=== PATIENT | female | born 1955 | race African-American/Black ===

== ENCOUNTER 2016-10-01 00:05 | Emergency (ER) | payer OTHER ==
[~2016-10-01] VITALS: Ht 165.1 cm; Wt 106.0 kg
[~2016-10-01 00:05] MED LIST: CEPH-443 PO; DOCU-159 PO; ERGO500014 PO; FLUO40CA PO; HYDR-906 PO; LOSA50TA6 PO; ONDA4TAB14 PO; ONDA4TAB8 PO; TRAZ50TA18 PO
[2016-10-01 00:09] VITALS: Ht 165.1 cm; Wt 106.0 kg
[2016-10-01] MEDS ORDERED: NPH10OT RIGHT EAR (03:19)
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
== END 2016-10-01 03:38 | disposition home or self-care (01) ==
LOC: FTE 00:05
DX: H92.01 Otalgia, right ear (principal); I10 Essential (primary) hypertension
CPT/HCPCS: 99283

== ENCOUNTER 2016-10-25 01:41 | Inpatient (IN) | payer OTHER ==
[~2016-10-25] VITALS: Ht 170.2 cm; Wt 81.6 kg
[~2016-10-25 01:41] MED LIST changes: +NPH10OT RIGHT EAR
[2016-10-25] MEDS ORDERED: ONDANSETRON 4 MG INJ IV STA (01:49)
[2016-10-25] MEDS ORDERED: HYDROmorphONE 1 MG/ML SYG IV STA (01:49)
[2016-10-25] MEDS ORDERED: SOD CHLORIDE 0.9% 500 ML IV STA (01:49)
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
[2016-10-25 02:38] LABS: BASOPHILS % 0.3 % (0.0-2.0); EOSINOPHILS # 0.1 10^3/ul (0.0-0.5); EOSINOPHILS % 0.5 % (0.0-7.0); HEMATOCRIT 38.5 % (37.0-47.0); HEMOGLOBIN 12.9 g/dl (12.0-16.0); LYMPHOCYTES # 3.3 10^3/ul (0.8-2.9); MEAN CORPUSCULAR HEMOGLOBIN 29.6 pg (29.0-33.0); MEAN CORPUSCULAR HGB CONC 33.5 g/dl (32.0-37.0); MEAN CORPUSCULAR VOLUME 88.3 fl (82.0-101.0); MEAN PLATELET VOLUME 10.5 fl (7.4-10.4); MONOCYTE # 1.1 10^3/ul (0.3-0.9); MONOCYTES % 8.3 % (0.0-11.0); NEUTROPHILS % 65.6 % (39.0-77.0); PLATELET COUNT 305 10^3/UL (140-415); RED BLOOD COUNT 4.36 10^6/ul (4.20-5.40); RED CELL DISTRIBUTION WIDTH 13.2 % (11.5-14.5); WHITE BLOOD COUNT 13.2 10^3/ul (4.8-10.8)
[2016-10-25 02:56] LABS: ALANINE AMINOTRANSFERASE 32 IU/L (13-69); ALBUMIN 3.9 g/dl (3.3-4.9); ALBUMIN/GLOBULIN RATIO 1.14; ALKALINE PHOSPHATASE 121 IU/L (42-121); ANION GAP 19 (8-16); ASPARTATE AMINO TRANSFERASE 22 IU/L (15-46); BILIRUBIN,INDIRECT 0.8 mg/dl (0-1.1); BILIRUBIN,TOTAL 0.8 mg/dl (0.2-1.3); BLOOD UREA NITROGEN 10 mg/dl (7-20); CALCIUM 9.3 mg/dl (8.4-10.2); CARBON DIOXIDE 24 mmol/L (21-31); CHLORIDE 106 mmol/L (97-110); CREATININE 1.05 mg/dl (0.44-1.00); GLUCOSE 103 mg/dl (70-220); POTASSIUM 3.8 mmol/L (3.5-5.1); SODIUM 145 mmol/L (135-144); TOTAL PROTEIN 7.3 g/dl (6.1-8.1)
[2016-10-25 03:09] LABS: TROPONIN-I < 0.012 ng/ml (0.00-0.12)
--- NOTE | 2016-10-25 03:38 | RADRPT ---
PROCEDURE: CT Abdomen and Pelvis without contrast. CLINICAL INDICATION: Abdominal pain TECHNIQUE: CT scan of the abdomen and pelvis without contrast was performed on a multidetector hig h-resolution CT scanner. The patient was scanned without intravenous contrast. Coronal and sagittal reformatted images were obtained from the axial source images. Images were reviewed on a high-resol [employer] PACS workstation. The total exam CTDI equals 21.68 mGy and the total exam DLP equals 1342.55 m Gy-cm. One or more the following dose reduction techniques were utilized: Automated exposure control, adjus tment of the mA and / or kV according to patient's size, or use of iterative reconstruction techniqu e. COMPARISON: 01/19/2016 FINDINGS: Right Port-A-Cath tip in upper right atrium. Minimal dependent atelectasis in posterior lung bases. No pneumoperitoneum is seen. Small foci of air in subcutaneous fat anterior abdominal and pelvic w all likely secondary to recent subcutaneous injections. No abnormality is seen in the liver. There is cholelithiasis. No definite abnormality of the stomach is seen. No abnormality is seen in the p ancreas, spleen or adrenals. No abnormality seen in the right kidney. There is nonspecific left pe rinephric soft tissue stranding increased compared to the previous study which could be secondary to pyelonephritis or recently passed ureteral stone. There is the suggestion of minimal left hydronep hrosis with minimally greater density in the left renal collecting system relative to the right and compared to previous study which could be secondary to blood. No ureteral stone is seen at this urvashi e bilaterally. No bladder stone is seen. Multiple phleboliths in the pelvis. Calcification in abdominal aorta and iliac arteries. No abdominal aortic aneurysm seen. The patient appears to be s tatus post hysterectomy. The patient again appears to be status post right colectomy with anastomos es with small bowel. No dilated small bowel loops are seen. No enlarged lymph nodes are seen in th e abdomen or pelvis. Small scattered likely bone islands again seen. Mild osteoarthrosis at hips. Degenerative changes at sacroiliac joints. Degenerative changes in thoracolumbar spine. Central s mary lou stenosis in lumbar spine. IMPRESSION: Cholelithiasis again seen with increase in number of gallstones since previous study. There is nonsp ecific left perinephric soft tissue stranding increased compared to the previous study which could b e secondary to pyelonephritis or recently passed ureteral stone. There is the suggestion of minimal left hydronephrosis with minimally greater density in the left renal collecting system relative to the right and compared to previous study which could be secondary to blood. Please see above. RPTAT: HJES .Omar Gama MD, Date Time Electronically viewed and signed by .Omar Gaam MD, on 10/25/2016 03:38 .S/
[2016-10-25] MEDS ORDERED: WARF2.5T PO (04:53)
[2016-10-25] MEDS ORDERED: PHEN-616 PO (04:53)
[2016-10-25] MEDS ORDERED: CIPR500T4 PO (04:53)
[2016-10-25] MEDS ORDERED: WARF10TA PO (04:53)
[2016-10-25 05:30] VITALS: TEMP 98.3
[2016-10-25] MEDS ORDERED: morphine 4 MG/ML VIAL IV STA (05:38)
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
[2016-10-25] MEDS ORDERED: NACL 0.9% 3 ML SYG IV SCH (07:00)
[2016-10-25] MEDS ORDERED: hydrALAzine 20 MG INJ IV PRN (07:00)
[2016-10-25] MEDS ORDERED: ONDANSETRON 4 MG INJ IV PRN (07:00)
[2016-10-25] MEDS: DEXTROSE 5%-0.45% NACL 1,000 ML IV SCH ×3 (08:18→18:51)
[2016-10-25 08:30] VITALS: BP 137/61; PULSE 71; RESP 18; Ht 170.2 cm; Wt 81.6 kg
[2016-10-25] MEDS: morphine 4 MG/ML VIAL IV PRN ×3 (08:56→20:51)
[2016-10-25] MEDS: FAMOTIDINE 20 MG INJ IV SCH ×2 (08:56→20:51)
--- NOTE | 2016-10-25 09:25 | HP ---
Date/Time of Note Date/Time of Note DATE: 10/25/16 TIME: 09:11 Assessment/Plan VTE Prophylaxis VTE Prophylaxis Intervention: SCD's Lines/Catheters IV Catheter Type (from Nrs): emmett cath Assessment/Plan Assessment/Plan 1. Left-sided abdominal pain -Given the fact that patient was recently diagnosed with UTI and the CAT scan finding, this could be secondary to pyelonephritis. Plan is for IV antibiotic. Check a urinalysis and urine culture. Continue pain management. 2. Cholelithiasis -I doubt her current pain is related to gallstone. In any case ER has already placed a surgical consult so will follow up on recommendation 3. History of colon cancer -Patient has completed chemo in December of last year. She is due for colonoscopy in a couple of days. She said that she was told if colonoscopy is negative, her Port-A-Cath will be removed. -Follow-up with oncology as outpatient 4. Hypertensive urgency: BP is better controlled -Continue antihypertensives with adjustment as needed HPI/ROS Admit Date/Time Admit Date/Time Oct 25, 2016 at 05:44 Hx of Present Illness This is a 61-year-old female with a history of hypertension, dyslipidemia, colon cancer status post completion of chemo in December of last year who presented to ER complaining of abdominal pain. Pain started last night. Pain is left-sided with no radiation. She reported an episode of nonbloody nonbilious emesis 1. She denied diarrhea. She said she was diagnosed with UTI 2 days ago and she has been taking Cipro. When she presented to the ER CT abdomen pelvis shows Cholelithiasis again seen with increase in number of gallstones since previous study. There is nonspecific left perinephric soft tissue stranding increased compared to the previous study which could be secondary to pyelonephritis or recently passed ureteral stone. There is the suggestion of minimal left hydronephrosis with minimally greater density in the left renal collecting system relative to the right and compared to previous study which could be secondary to blood. . PMH/Family/Social Past Medical History Medical History: high cholesterol, hypertension, other (Colon cancer) Social History Alcohol Use: none Smoking Status: Never smoker Drug Use: none Exam/Review of Systems Vital Signs Vitals Vital Signs Date Time Temp Pulse Resp B/P Pulse Ox O2 Delivery O2 Flow Rate FiO2 10/25/16 08:30 98.5 71 18 137/61 97 Room Air Exam Constitutional: alert, oriented, well developed Head: atraumatic, normocephalic Eyes: EOMI, PERRL Respiratory: clear to auscultation, normal air movement Cardiovascular: nl pulses, regular rate and rhythm Gastrointestinal: other (Mild left sided tenderness, with no guarding, no rigidity), soft Extremities: normal pulses Labs Result Diagram: 10/25/16 01410/25/16 0140 Medications Medications Current Medications Dextrose/Sodium Chloride (D5-1/2ns) 1,000 ml @ 100 mls/hr Q10H IV Last administered on 10/25/16 08:18; Admin Dose 100 MLS/HR; Start 10/25/16 at 06:35 Ondansetron HCl (Zofran Inj) 4 mg Q6H PRN IV NAUSEA AND/OR VOMITING; Start at 07:00 Morphine Sulfate (morphine) 4 mg Q4H PRN IV SEVERE PAIN LEVEL 7-10 Last administered on 10/25/16 08:56; Admin Dose 4 MG; Start 10/25/16 at 07:00 Famotidine (Pepcid Iv) 20 mg Q12 IV Last administered on 10/25/16 08:56; Admin Dose 20 MG; Start 10/25/16 at 09:00 Hydralazine HCl (Apresoline) 10 mg Q4H PRN IV SBP > 160; Start 10/25/16 at 07: 00 ELIEZER SALINAS MD Oct 25, 2016 09:23
[2016-10-25] MEDS ORDERED: CIPROFLOXACIN 400MG/D5W 200 ML IVPB SCH (09:30)
[2016-10-25] MEDS: PHENAZOPYRIDINE 200 MG TAB PO SCH ×2 (12:26→20:51)
[2016-10-25] MEDS: CEFTRIAXONE 1 GM/50 ML (PMX) 50 ML IVPB SCH (12:26)
[2016-10-25 13:08] VITALS: BP 116/64; RESP 18
[2016-10-25 13:09] LABS: ADD UMIC YES; UR ASCORBIC ACID NEGATIVE (NEGATIVE); UR BILIRUBIN (Dip) NEGATIVE (NEGATIVE); UR BLOOD (Dip) 2+ mg/dL (NEGATIVE); UR CLARITY CLOUDY (CLEAR); UR COLOR RED (YELLOW); UR GLUCOSE (Dip) 1+ mg/dL (NEGATIVE); UR KETONES (Dip) TRACE mg/dL (NEGATIVE); UR LEUKOCYTE ESTERASE (Dip) NEGATIVE Leu/ul (NEGATIVE); UR NITRITE (Dip) POSITIVE (NEGATIVE); UR RBC > 182 /HPF (0-5); UR SPECIFIC GRAVITY (Dip) 1.013 (1.003-1.030); UR TOTAL PROTEIN (Dip) 2+ mg/dl (NEGATIVE); UR UROBILINOGEN (Dip) 2+ mg/dL (NEGATIVE); UR WBC CLUMPS MANY /HPF (NONE SEEN)
[2016-10-25] MEDS: ENOXAPARIN 80 MG/0.8 ML SYG SC SCH ×2 (13:15→23:06)
--- NOTE | 2016-10-25 16:55 | CONS ---
Date/Time of Note Date/Time of Note DATE: 10/25/16 TIME: 16:49 Assessment/Plan Assessment/Plan Additional Assessment/Plan Asymptomatic cholelithiasis Recommend bowel regimen. No surgical indication at this time. May benefit from GI consultation. Also would recommend following up with surgery who performed her colectomy Consultation Date/Type/Reason Admit Date/Time Oct 25, 2016 at 05:44 Date of Consultation: Oct 25, 2016 Hx of Present Illness The patient is a 61-year-old female who presented to the ER last night with abdominal pain. She has says her pain is in the left lower quadrant. She feels that she has a bowel movement but does not feel like she completely empties. She is a long history of known gallstones and I was called for consultation. She denies right upper quadrant pain. She denies nausea she denies vomiting Past Medical History Medical History: high cholesterol, hypertension, other (Colon cancer) Past Surgical History Past Surgical Hx: other (Post colectomy) Social History Alcohol Use: none Smoking Status: Never smoker Drug Use: none Exam/Review of Systems Vital Signs Vitals Vital Signs Date Time Temp Pulse Resp B/P Pulse Ox O2 Delivery O2 Flow Rate FiO2 10/25/16 13:08 98.7 72 18 116/64 97 10/25/16 08:30 Room Air Exam Constitutional: alert, oriented, well developed Psych: no complaints Head: normocephalic ENMT: nl external ears & nose Neck: supple Respiratory: clear to auscultation Cardiovascular: regular rate and rhythm Gastrointestinal: other (Nondistended with some slight left lower quadrant tenderness), soft Musculoskeletal: nl extremities to inspection Results Result Diagram: 10/25/16 0140 10/25/16 0140 Results 24 hrs Laboratory Tests Test 10/25/16 01:40 10/25/16 12:30 White Blood Count 13.2 #H Red Blood Count 4.36 Hemoglobin 12.9 Hematocrit 38.5 Mean Corpuscular Volume 88.3 Mean Corpuscular Hemoglobin 29.6 Mean Corpuscular Hemoglobin Concent 33.5 Red Cell Distribution Width 13.2 Platelet Count 305 Mean Platelet Volume 10.5 #H Neutrophils % 65.6 Lymphocytes % 25.0 Monocytes % 8.3 Eosinophils % 0.5 Basophils % 0.3 Nucleated Red Blood Cells % 0.0 Neutrophils # (Manual) 8.6 H Lymphocytes # 3.3 H Monocytes # 1.1 H Eosinophils # 0.1 Basophils # 0.0 Nucleated Red Blood Cells # 0.0 Sodium Level 145 H Potassium Level 3.8 Chloride Level 106 Carbon Dioxide Level 24 Anion Gap 19 H Blood Urea Nitrogen 10 Creatinine 1.05 H Glucose Level 103 Calcium Level 9.3 Total Bilirubin 0.8 Direct Bilirubin 0.00 Indirect Bilirubin 0.8 Aspartate Amino Transf (AST/SGOT) 22 Alanine Aminotransferase (ALT/SGPT) 32 Alkaline Phosphatase 121 Troponin I < 0.012 Total Protein 7.3 Albumin 3.9 Globulin 3.40 H Albumin/Globulin Ratio 1.14 Lipase 206 Urine Color RED Urine Clarity CLOUDY A Urine pH 6.0 Urine Specific [place] 1.013 Urine Ketones TRACE A Urine Nitrite POSITIVE A Urine Bilirubin NEGATIVE Urine Urobilinogen 2+ H Urine Leukocyte Esterase NEGATIVE Urine Microscopic RBC > 182 H Urine Microscopic WBC > 182 H Urine Hemoglobin 2+ H Urine Glucose 1+ H Urine Total Protein 2+ H Medications Medications Current Medications Dextrose/Sodium Chloride (D5-1/2ns) 1,000 ml @ 100 mls/hr Q10H IV Last administered on 10/25/16 08:18; Admin Dose 100 MLS/HR; Start 10/25/16 at 06:35 Ondansetron HCl (Zofran Inj) 4 mg Q6H PRN IV NAUSEA AND/OR VOMITING; Start at 07:00 Morphine Sulfate (morphine) 4 mg Q4H PRN IV SEVERE PAIN LEVEL 7-10 Last administered on 10/25/16 08:56; Admin Dose 4 MG; Start 10/25/16 at 07:00 Famotidine (Pepcid Iv) 20 mg Q12 IV Last administered on 10/25/16 08:56; Admin Dose 20 MG; Start 10/25/16 at 09:00 Hydralazine HCl (Apresoline) 10 mg Q4H PRN IV SBP > 160; Start 10/25/16 at 07: 00 Losartan Potassium (Cozaar) 50 mg DAILY PO ; Start 10/26/16 at 09:00 Phenazopyridine HCl 200 mg 200 mg TID PO Last administered on 10/25/16 12:26; Admin Dose 200 MG; Start 10/25/16 at 13:00 Ceftriaxone Sodium (Rocephin) 50 ml @ 100 mls/hr Q24H IVPB Last administered on 10/25/16 12:26; Admin Dose 100 MLS/HR; Start 10/25/16 at 11:00 Enoxaparin Sodium (Lovenox) 80 mg Q12 SC Last administered on 10/25/16 13:15; Admin Dose 80 MG; Start 10/25/16 at 13:30 DONNA RODRIGUEZ MD Oct 25, 2016 16:55
[2016-10-25 19:40] VITALS: BP 102/59; RESP 20
[2016-10-26 01:51] VITALS: BP 111/58; RESP 20
[2016-10-26] MEDS: morphine 4 MG/ML VIAL IV PRN ×2 (04:38→19:53)
[2016-10-26] MEDS: DEXTROSE 5%-0.45% NACL 1,000 ML IV SCH ×2 (04:38→22:35)
[2016-10-26 06:54] LABS: BASOPHILS % 0.1 % (0.0-2.0); EOSINOPHILS # 0.1 10^3/ul (0.0-0.5); HEMATOCRIT 36.4 % (37.0-47.0); HEMOGLOBIN 11.6 g/dl (12.0-16.0); LYMPHOCYTES # 3.4 10^3/ul (0.8-2.9); LYMPHOCYTES % 37.7 % (15.0-51.0); MEAN CORPUSCULAR HEMOGLOBIN 28.9 pg (29.0-33.0); MEAN CORPUSCULAR HGB CONC 31.9 g/dl (32.0-37.0); MEAN CORPUSCULAR VOLUME 90.5 fl (82.0-101.0); MEAN PLATELET VOLUME 10.1 fl (7.4-10.4); MONOCYTE # 0.8 10^3/ul (0.3-0.9); MONOCYTES % 9.3 % (0.0-11.0); NEUTROPHILS % 51.7 % (39.0-77.0); PLATELET COUNT 267 10^3/UL (140-415); RED BLOOD COUNT 4.02 10^6/ul (4.20-5.40); RED CELL DISTRIBUTION WIDTH 13.5 % (11.5-14.5)
[2016-10-26 07:26] LABS: ALBUMIN 3.4 g/dl (3.3-4.9); ALBUMIN/GLOBULIN RATIO 1.09; BILIRUBIN,INDIRECT 0.5 mg/dl (0-1.1); BILIRUBIN,TOTAL 0.5 mg/dl (0.2-1.3); CALCIUM 8.4 mg/dl (8.4-10.2); CHOL/HDL RATIO 3.2 RATIO; CREATININE 0.97 mg/dl (0.44-1.00); PHOSPHORUS 3.8 mg/dl (2.5-4.9); POTASSIUM 4.1 mmol/L (3.5-5.1); TOTAL PROTEIN 6.5 g/dl (6.1-8.1)
[2016-10-26] MEDS: PHENAZOPYRIDINE 200 MG TAB PO SCH ×3 (08:34→20:30)
[2016-10-26] MEDS: FAMOTIDINE 20 MG INJ IV SCH (08:34)
[2016-10-26] MEDS: ENOXAPARIN 80 MG/0.8 ML SYG SC SCH ×2 (08:37→20:34)
[2016-10-26 09:02] VITALS: BP 140/73; RESP 20
[2016-10-26] MEDS: LOSARTAN 50 MG TAB PO SCH (10:05)
[2016-10-26] MEDS: CEFTRIAXONE 1 GM/50 ML (PMX) 50 ML IVPB SCH (10:07)
[2016-10-26 15:18] VITALS: BP 125/67; RESP 20
--- NOTE | 2016-10-26 15:58 | PN ---
Date/Time of Note Date/Time of Note DATE: 10/26/16 TIME: 15:53 Assessment/Plan VTE Prophylaxis VTE Prophylaxis Intervention: LMWH Lines/Catheters IV [facility] Type (from [facility] [place] cath Urinary Cath still in place: No Assessment/Plan Chief Complaint/Hosp Course 1. Left-sided abdominal pain secondary to pyelonephritis -UA is positive and urine culture shows diphtheroids -ID consult obtained 2. Cholelithiasis -Surgery consultation appreciated, no indication for surgery symptoms are not related to cholelithiasis 3. History of colon cancer s/p hemicolectomy and chemotherapy -Patient has completed chemo in December of last year -She was due for a colonoscopy as an outpatient tomorrow which she has canceled but would like a colonoscopy as an inpatient, have consulted GI -She said that she was told if colonoscopy is negative, her Port-A-Cath will be removed. -Follow-up with oncology as outpatient 4. Hypertensive urgency: BP is better controlled -Continue antihypertensives with adjustment as needed 5. Hx of DVT/PE -continue Lovenox PPx- Lovenox Problems: Subjective 24 Hr Interval Summary Gastrointestinal: pain (L side) Exam/Review of Systems Vital Signs Vitals Vital Signs Date Time Temp Pulse Resp B/P Pulse Ox O2 Delivery O2 Flow Rate FiO2 10/26/16 09:02 98.1 73 20 140/73 98 10/25/16 08:30 Room Air Intake and Output 10/25/16 10/25/16 10/26/16 15:00 23:00 07:00 Intake Total 50 ml 1770 ml 1100 ml Balance 50 ml 1770 ml 1100 ml Exam Constitutional: alert, oriented Respiratory: clear to auscultation Cardiovascular: regular rate and rhythm Gastrointestinal: soft, No distended Musculoskeletal: nl extremities to inspection Results Result Diagram: 10/26/16 0607 10/26/16 0608 Results 24 hrs Laboratory Tests Test 10/26/16 06:07 10/26/16 06:08 White Blood Count 9.0 # Red Blood Count 4.02 L Hemoglobin 11.6 L Hematocrit 36.4 L Mean Corpuscular Volume 90.5 Mean Corpuscular Hemoglobin 28.9 L Mean Corpuscular Hemoglobin Concent 31.9 L Red Cell Distribution Width 13.5 Platelet Count 267 Mean Platelet Volume 10.1 Neutrophils % 51.7 Lymphocytes % 37.7 Monocytes % 9.3 Eosinophils % 1.0 Basophils % 0.1 Nucleated Red Blood Cells % 0.0 Neutrophils # (Manual) 4.6 Lymphocytes # 3.4 H Monocytes # 0.8 Eosinophils # 0.1 Basophils # 0.0 Nucleated Red Blood Cells # 0.0 Hemoglobin A1c 5.2 Sodium Level 144 Potassium Level 4.1 Chloride Level 105 Carbon Dioxide Level 28 Anion Gap 15 Blood Urea Nitrogen 12 Creatinine 0.97 Glucose Level 90 Calcium Level 8.4 Phosphorus Level 3.8 Magnesium Level 2.0 Total Bilirubin 0.5 Direct Bilirubin 0.00 Indirect Bilirubin 0.5 Aspartate Amino Transf (AST/SGOT) 30 Alanine Aminotransferase (ALT/SGPT) 34 Alkaline Phosphatase 86 Total Protein 6.5 Albumin 3.4 Globulin 3.10 Albumin/Globulin Ratio 1.09 Triglycerides Level 67 Cholesterol Level 158 LDL Cholesterol, Calculated 97 HDL Cholesterol 48 Cholesterol/HDL Ratio 3.2 Medications Medications Current Medications Dextrose/Sodium Chloride (D5-1/2ns) 1,000 ml @ 100 mls/hr Q10H IV Last administered on 10/26/16 04:38; Admin Dose 100 MLS/HR; Start 10/25/16 at 06:35 Ondansetron HCl (Zofran Inj) 4 mg Q6H PRN IV NAUSEA AND/OR VOMITING; Start at 07:00 Morphine Sulfate (morphine) 4 mg Q4H PRN IV SEVERE PAIN LEVEL 7-10 Last administered on 10/26/16 04:38; Admin Dose 4 MG; Start 10/25/16 at 07:00 Famotidine (Pepcid Iv) 20 mg Q12 IV Last administered on 10/26/16 08:34; Admin Dose 20 MG; Start 10/25/16 at 09:00 Hydralazine HCl (Apresoline) 10 mg Q4H PRN IV SBP > 160; Start 10/25/16 at 07: 00 Losartan Potassium (Cozaar) 50 mg DAILY PO Last administered on 10/26/16 10:05 ; Admin Dose 50 MG; Start 10/26/16 at 09:00 Phenazopyridine HCl 200 mg 200 mg TID PO Last administered on 10/26/16 13:31; Admin Dose 200 MG; Start 10/25/16 at 13:00 Ceftriaxone Sodium (Rocephin) 50 ml @ 100 mls/hr Q24H IVPB Last administered on 10/26/16 10:07; Admin Dose 100 MLS/HR; Start 10/25/16 at 11:00 Enoxaparin Sodium (Lovenox) 80 mg Q12 SC Last administered on 10/26/16 08:37; Admin Dose 80 MG; Start 10/25/16 at 13:30 UBALDO HOBSON Oct 26, 2016 15:58
--- NOTE | 2016-10-26 16:50 | CONS ---
Date/Time of Note Date/Time of Note DATE: 10/26/16 TIME: 16:43 Assessment/Plan Assessment/Plan Additional Assessment/Plan Assessment: * History of colon cancer post segmental resection plus adjuvant chemotherapy/ due for surveillance colonoscopy * Cholelithiasis/no cholecystitis * Morbid obesity * Hypertension * Dyslipidemia Plan: * Colonoscopy tomorrow. Patient informed procedure including risks, benefits and alternatives. Agreeable to proceeding Consultation Date/Type/Reason Admit Date/Time Oct 25, 2016 at 05:44 Date of Consultation: Oct 26, 2016 Type of Consultation: GI Reason for Consultation History of colon cancer/due for surveillance Hx of Present Illness Pleasant 61-year-old -[place] female hospitalized with complaints of abdominal pain, nausea and vomiting. Workup has disclosed evidence of cholelithiasis but no acute cholecystitis. The patient's symptomatology has improved. The patient has a significant history of colon cancer approximately one year prior for which she underwent surgical resection and adjuvant chemotherapy. She is actually due for colonoscopy in a few days as an outpatient and the removal of the Port-A-Cath will depend on the findings of colonoscopy. She has requested to undergo colonoscopy while in the hospital and therefore GI has been consulted. There appears to be no contraindication to colonoscopy. The patient understands the procedure and its potential risks, benefits and alternatives. We will prepared and planned for tomorrow. Constitutional: improved, no complaints Eyes: no complaints ENT: no complaints Respiratory: no complaints Cardiovascular: no complaints Gastrointestinal: constipation, pain (Upper abdomen, now resolved), No blood, No nausea, No vomiting Genitourinary: no complaints Musculoskeletal: no complaints Skin: no complaints Neurologic: no complaints Endocrine: no complaints Lymphatic: no complaints Psychological: no complaints Immunologic: no complaints Past Medical History Medical History: high cholesterol, hypertension, other (Colon cancer) Past Surgical History Past Surgical Hx: other (Post colectomy) Family History Significant Family History: no pertinent family hx Social History Alcohol Use: none Smoking Status: Never smoker Drug Use: none Exam/Review of Systems Vital Signs Vitals Vital Signs Date Time Temp Pulse Resp B/P Pulse Ox O2 Delivery O2 Flow Rate FiO2 10/26/16 15:18 98.3 72 20 125/67 97 10/25/16 08:30 Room Air Intake and Output 10/25/16 10/25/16 10/26/16 15:00 23:00 07:00 Intake Total 50 ml 1770 ml 1100 ml Balance 50 ml 1770 ml 1100 ml Exam PHYSICAL EXAMINATION: GENERAL: Well developed, well nourished, significantly obese, alert & oriented x 3, in no acute distress SKIN: No lesions, no stigmata chronic liver disease, no evidence of bleeding diathesis LYMPHATIC: No palpable lymphadenopathy. HEAD: Normocephalic, atraumatic, no tenderness. EYES: Pupils equal reactive to light and accommodation, full extraocular movements, sclera clear, non-icteric, no discharge. EARS/NOSE AND THROAT: Ears normal, nose normal, oropharynx normal, oral membranes well hydrated without lesions. NECK: Supple, no masses, thyroid normal, JVP within normal limits, carotids normal without bruits. CHEST: Inspection within normal limits, breasts grossly normal. CARDIOVASCULAR: Heart: Regular rate and rhythm, no murmurs, gallops or rubs. Peripheral pulses present within normal limits, no cyanosis, clubbing or edemas. No pulsatile abdominal mass RESPIRATORY: Lungs clear to auscultation and percussion, no wheezing, no rubs GASTROINTESTINAL AND LIVER: Abdomen: Soft, mild diffuse tenderness, non- distended, no hernias, no masses, no organomegaly, no ascites, no guarding, no rebound tenderness, normoactive bowel sounds. Rectal: Deferred. GENITOURINARY: [Female genitalia within normal limits.] MUSCULO-SKELETAL: Gait and station within normal limits, range of motion adequate. Results Result Diagram: 10/26/16 0607 10/26/16 0608 Results 24 hrs Laboratory Tests Test 10/26/16 06:07 10/26/16 06:08 White Blood Count 9.0 # Red Blood Count 4.02 L Hemoglobin 11.6 L Hematocrit 36.4 L Mean Corpuscular Volume 90.5 Mean Corpuscular Hemoglobin 28.9 L Mean Corpuscular Hemoglobin Concent 31.9 L Red Cell Distribution Width 13.5 Platelet Count 267 Mean Platelet Volume 10.1 Neutrophils % 51.7 Lymphocytes % 37.7 Monocytes % 9.3 Eosinophils % 1.0 Basophils % 0.1 Nucleated Red Blood Cells % 0.0 Neutrophils # (Manual) 4.6 Lymphocytes # 3.4 H Monocytes # 0.8 Eosinophils # 0.1 Basophils # 0.0 Nucleated Red Blood Cells # 0.0 Hemoglobin A1c 5.2 Sodium Level 144 Potassium Level 4.1 Chloride Level 105 Carbon Dioxide Level 28 Anion Gap 15 Blood Urea Nitrogen 12 Creatinine 0.97 Glucose Level 90 Calcium Level 8.4 Phosphorus Level 3.8 Magnesium Level 2.0 Total Bilirubin 0.5 Direct Bilirubin 0.00 Indirect Bilirubin 0.5 Aspartate Amino Transf (AST/SGOT) 30 Alanine Aminotransferase (ALT/SGPT) 34 Alkaline Phosphatase 86 Total Protein 6.5 Albumin 3.4 Globulin 3.10 Albumin/Globulin Ratio 1.09 Triglycerides Level 67 Cholesterol Level 158 LDL Cholesterol, Calculated 97 HDL Cholesterol 48 Cholesterol/HDL Ratio 3.2 Medications Medications Current Medications Dextrose/Sodium Chloride (D5-1/2ns) 1,000 ml @ 100 mls/hr Q10H IV Last administered on 10/26/16 04:38; Admin Dose 100 MLS/HR; Start 10/25/16 at 06:35 Ondansetron HCl (Zofran Inj) 4 mg Q6H PRN IV NAUSEA AND/OR VOMITING; Start at 07:00 Morphine Sulfate (morphine) 4 mg Q4H PRN IV SEVERE PAIN LEVEL 7-10 Last administered on 10/26/16 04:38; Admin Dose 4 MG; Start 10/25/16 at 07:00 Famotidine (Pepcid Iv) 20 mg Q12 IV Last administered on 10/26/16 08:34; Admin Dose 20 MG; Start 10/25/16 at 09:00 Hydralazine HCl (Apresoline) 10 mg Q4H PRN IV SBP > 160; Start 10/25/16 at 07: 00 Losartan Potassium (Cozaar) 50 mg DAILY PO Last administered on 10/26/16 10:05 ; Admin Dose 50 MG; Start 10/26/16 at 09:00 Phenazopyridine HCl 200 mg 200 mg TID PO Last administered on 10/26/16 13:31; Admin Dose 200 MG; Start 10/25/16 at 13:00 Ceftriaxone Sodium (Rocephin) 50 ml @ 100 mls/hr Q24H IVPB Last administered on 10/26/16 10:07; Admin Dose 100 MLS/HR; Start 10/25/16 at 11:00 Enoxaparin Sodium (Lovenox) 80 mg Q12 SC Last administered on 10/26/16 08:37; Admin Dose 80 MG; Start 10/25/16 at 13:30 AUDI LEON MD Oct 26, 2016 16:50
--- NOTE | 2016-10-26 17:44 | CONS ---
Date/Time of Note Date/Time of Note DATE: 10/26/16 TIME: 17:43 Consultation Date/Type/Reason Admit Date/Time Oct 25, 2016 at 05:44 Date of Consultation: Oct 26, 2016 Type of Consultation: ID Reason for Consultation Antibiotic management Constitutional: improved, no complaints Eyes: no complaints ENT: no complaints Respiratory: no complaints Cardiovascular: no complaints Gastrointestinal: constipation, pain (Upper abdomen, now resolved), No blood, No nausea, No vomiting Genitourinary: no complaints Musculoskeletal: no complaints Skin: no complaints Neurologic: no complaints Endocrine: no complaints Lymphatic: no complaints Psychological: no complaints Immunologic: no complaints Past Medical History Medical History: high cholesterol, hypertension, other (Colon cancer) Past Surgical History Past Surgical Hx: other (Post colectomy) Social History Alcohol Use: none Smoking Status: Never smoker Drug Use: none Exam/Review of Systems Vital Signs Vitals Vital Signs Date Time Temp Pulse Resp B/P Pulse Ox O2 Delivery O2 Flow Rate FiO2 10/26/16 15:18 98.3 72 20 125/67 97 10/25/16 08:30 Room Air Intake and Output 10/25/16 10/25/16 10/26/16 15:00 23:00 07:00 Intake Total 50 ml 1770 ml 1100 ml Balance 50 ml 1770 ml 1100 ml Results Result Diagram: 10/26/16 0607 10/26/16 0608 Results 24 hrs Laboratory Tests Test 10/26/16 06:07 10/26/16 06:08 White Blood Count 9.0 # Red Blood Count 4.02 L Hemoglobin 11.6 L Hematocrit 36.4 L Mean Corpuscular Volume 90.5 Mean Corpuscular Hemoglobin 28.9 L Mean Corpuscular Hemoglobin Concent 31.9 L Red Cell Distribution Width 13.5 Platelet Count 267 Mean Platelet Volume 10.1 Neutrophils % 51.7 Lymphocytes % 37.7 Monocytes % 9.3 Eosinophils % 1.0 Basophils % 0.1 Nucleated Red Blood Cells % 0.0 Neutrophils # (Manual) 4.6 Lymphocytes # 3.4 H Monocytes # 0.8 Eosinophils # 0.1 Basophils # 0.0 Nucleated Red Blood Cells # 0.0 Hemoglobin A1c 5.2 Sodium Level 144 Potassium Level 4.1 Chloride Level 105 Carbon Dioxide Level 28 Anion Gap 15 Blood Urea Nitrogen 12 Creatinine 0.97 Glucose Level 90 Calcium Level 8.4 Phosphorus Level 3.8 Magnesium Level 2.0 Total Bilirubin 0.5 Direct Bilirubin 0.00 Indirect Bilirubin 0.5 Aspartate Amino Transf (AST/SGOT) 30 Alanine Aminotransferase (ALT/SGPT) 34 Alkaline Phosphatase 86 Total Protein 6.5 Albumin 3.4 Globulin 3.10 Albumin/Globulin Ratio 1.09 Triglycerides Level 67 Cholesterol Level 158 LDL Cholesterol, Calculated 97 HDL Cholesterol 48 Cholesterol/HDL Ratio 3.2 Medications Medications Current Medications Dextrose/Sodium Chloride (D5-1/2ns) 1,000 ml @ 100 mls/hr Q10H IV Last administered on 10/26/16 04:38; Admin Dose 100 MLS/HR; Start 10/25/16 at 06:35 Ondansetron HCl (Zofran Inj) 4 mg Q6H PRN IV NAUSEA AND/OR VOMITING; Start at 07:00 Morphine Sulfate (morphine) 4 mg Q4H PRN IV SEVERE PAIN LEVEL 7-10 Last administered on 10/26/16 04:38; Admin Dose 4 MG; Start 10/25/16 at 07:00 Hydralazine HCl (Apresoline) 10 mg Q4H PRN IV SBP > 160; Start 10/25/16 at 07: 00 Losartan Potassium (Cozaar) 50 mg DAILY PO Last administered on 10/26/16 10:05 ; Admin Dose 50 MG; Start 10/26/16 at 09:00 Phenazopyridine HCl 200 mg 200 mg TID PO Last administered on 10/26/16 13:31; Admin Dose 200 MG; Start 10/25/16 at 13:00 Ceftriaxone Sodium (Rocephin) 50 ml @ 100 mls/hr Q24H IVPB Last administered on 10/26/16 10:07; Admin Dose 100 MLS/HR; Start 10/25/16 at 11:00 Enoxaparin Sodium (Lovenox) 80 mg Q12 SC Last administered on 10/26/16 08:37; Admin Dose 80 MG; Start 10/25/16 at 13:30 Famotidine (Pepcid) 20 mg Q12 PO ; Start 10/26/16 at 21:00 ONIEL PETERSON MD Oct 26, 2016 17:44
[2016-10-26 20:00] VITALS: BP 149/70; RESP 18
[2016-10-26] MEDS: FAMOTIDINE 20 MG TAB PO SCH (20:30)
--- NOTE | 2016-10-26 22:26 | CONS ---
DATE OF ADMISSION: 10/25/2016 DATE OF CONSULTATION: 10/26/2016 Infectious disease consultation REASON FOR CONSULTATION: Antibiotic management. Sandi Morales is a 61-year-old female who comes in with left-sided abdominal pain. She is being seen for antibiotic management. PROBLEMS: 1. Hypertension. 2. Dyslipidemia. 3. Colon cancer status post completion of chemotherapy in December 2015. The patient presented to the emergency room complaining of abdominal pain which started last started on the at night, it was left-sided, without radiation. She had some nonbloody, nonbilious emesis without diarrhea. She was diagnosed with UTI 2 days prior and was taking ciprofloxacin. In the emergency room a CT scan of the abdomen showed cholelithiasis, seen with increase in the number of gallstones since her previous study. There is a nonspecific left perinephric soft tissue stranding, which is increased compared to the previous study, which could be secondary to pyelonephritis or recently passed ureteral stones. There is a suggestion of minimal left hydronephrosis with minimal greater density in the left renal collecting system relative to the right and compared to previous studies. This could be secondary to blood. On admission, her white count was 13.2, H and H of 12.9 and 38.5, platelet count 305,000. BUN and creatinine was 10/1.05. Glucose was 103. PAST MEDICAL HISTORY: Operations as outlined. FAMILY HISTORY: Noncontributory. SOCIAL HISTORY: She does not smoke, drink, or abuse drugs. ALLERGIES: NONE TO PENICILLIN, SULFA, OR FOODS. MEDICATION: Per chart. REVIEW OF SYSTEMS: As per HPI. PHYSICAL EXAMINATION: GENERAL: Patient is a well-developed, well-nourished, female who is alert, responsive, in no acute distress. VITAL SIGNS: Stable. She is afebrile. SKIN: Without generalized rash. HEENT: Within normal limits. NECK: Supple. Lymph nodes nonpalpable. CHEST: Decreased breath sounds at the bases. HEART: Without murmur or gallop. ABDOMEN: Soft, nontender. She has mild left-sided tenderness and some flank tenderness with no guarding. EXTREMITIES: Extremities without cyanosis, clubbing, or edema. RECTAL: Deferred. GENITAL: Deferred. NEUROLOGICAL: No focal neurological abnormality. LABORATORY: As noted, her white count was 13.2, her BUN and creatinine was 10/1.05. Urine culture showed diphtheroids, which is a contaminant. Her white count today is 9.0. Urine was negative for leukocyte esterase, positive for nitrites and greater than 182 white cells per high-powered field. The patient was started on ceftriaxone 1 g q.24. She had received some Cipro as well. She did not get any blood cultures drawn, but she is currently afebrile. She was also seen in consultation by Dr. Green who is going to do a colonoscopy tomorrow. He notes that she has a history of colon cancer status post segmental resection plus adjuvant chemotherapy. IMPRESSION AND PLAN: My feeling is that at this point she is stable and so I will continue her on the ceftriaxone dose. If she was ill I would escalate to either ertapenem or cefepime or Zosyn, if we can wait 24 hours and see what her cultures show. I will dictate my findings to the hospitalist as well as to Dr. Giraldo, surgery, and also to Dr. Green, GI. Dictated By: Rashel Calvert MD JD/harry/ /Document#: [id number]
[2016-10-27] MEDS: DEXTROSE 5%-0.45% NACL 1,000 ML IV SCH ×4 (01:31→22:39)
[2016-10-27] MEDS: morphine 4 MG/ML VIAL IV PRN ×4 (01:50→22:43)
[2016-10-27 02:00] VITALS: BP 148/70; RESP 18
[2016-10-27] MEDS: KETOROLAC 30 MG INJ IV PRN ×2 (02:41→08:44)
[2016-10-27 06:28] LABS: EOSINOPHILS # 0.1 10^3/ul (0.0-0.5); EOSINOPHILS % 1.3 % (0.0-7.0); HEMATOCRIT 34.8 % (37.0-47.0); HEMOGLOBIN 11.2 g/dl (12.0-16.0); LYMPHOCYTES # 2.7 10^3/ul (0.8-2.9); LYMPHOCYTES % 30.7 % (15.0-51.0); MEAN CORPUSCULAR HEMOGLOBIN 29.2 pg (29.0-33.0); MEAN CORPUSCULAR HGB CONC 32.2 g/dl (32.0-37.0); MEAN CORPUSCULAR VOLUME 90.6 fl (82.0-101.0); MEAN PLATELET VOLUME 10.2 fl (7.4-10.4); MONOCYTE # 0.9 10^3/ul (0.3-0.9); MONOCYTES % 9.6 % (0.0-11.0); PLATELET COUNT 255 10^3/UL (140-415); RED BLOOD COUNT 3.84 10^6/ul (4.20-5.40); RED CELL DISTRIBUTION WIDTH 13.7 % (11.5-14.5); WHITE BLOOD COUNT 8.9 10^3/ul (4.8-10.8)
[2016-10-27 06:48] LABS: INR 0.98
[2016-10-27 06:49] LABS: PARTIAL THROMBOPLASTIN TIME 37.7 Sec (25.0-35.0)
[2016-10-27 07:20] LABS: CALCIUM 8.3 mg/dl (8.4-10.2); CREATININE 0.96 mg/dl (0.44-1.00); POTASSIUM 3.8 mmol/L (3.5-5.1)
[2016-10-27 08:07] VITALS: BP 129/68; RESP 16
[2016-10-27] MEDS: FAMOTIDINE 20 MG TAB PO SCH ×2 (08:38→20:23)
[2016-10-27] MEDS: LOSARTAN 50 MG TAB PO SCH (08:38)
[2016-10-27] MEDS: PHENAZOPYRIDINE 200 MG TAB PO SCH ×3 (08:40→20:25)
[2016-10-27] MEDS: ENOXAPARIN 80 MG/0.8 ML SYG SC SCH ×2 (08:40→20:25)
[2016-10-27] MEDS: CEFTRIAXONE 1 GM/50 ML (PMX) 50 ML IVPB SCH (11:01)
[2016-10-27] MEDS ORDERED: BISACODYL (EC) 5 MG TAB PO ONE (11:30)
[2016-10-27 14:00] VITALS: BP 121/63; RESP 16
--- NOTE | 2016-10-27 15:28 | PN ---
DATE: 10/27/2016 SUBJECTIVE DATA: No acute changes overnight. The patient is alert, feels good, denies pain discomfort. No fevers. No dysuria. WBC today 8.9, no shift, no bands. BUN 12 and creatinine 0.96. Urine culture on 10/25/2016 grew Corynebacterium species resistant to Cipro and Bactrim. Indwelling right chest Port-A-Cath. ALLERGIES: PENICILLIN, SULFA AND TETRACYCLINE. OBJECTIVE DATA: PHYSICAL EXAMINATION: GENERAL: Well developed, elderly, -[place]yp[place] woman who is alert, in no distress. HEENT: Head atraumatic, normocephalic. Sclerae anicteric. Buccal mucosa pink. NECK: Supple. CHEST: Chest rise is symmetrical. Breath sounds clear. HEART: S1, S2. ABDOMEN: Soft, bowel sounds present. EXTREMITIES: Without cyanosis. ASSESSMENT: 1. Status post left-sided abdominal pain. 2. Urinary tract infection. As per urinalysis, patient remains on Rocephin. Urine culture grew Corynebacterium species. 3. History of colon cancer, status post-resection plus gallon chemotherapy. 4. Cholelithiasis without evidence of cholecystitis. 5. Obesity. 6. Hypertension. PLAN: The patient remains stable, overall improving. She is being seen by Gastroenterology who recommends repeat colonoscopy. Dictated By: Brenda Solorzano NP /harry/lynn /Document#: [id number]
[2016-10-27] MEDS ORDERED: PEG/ELECTROLYTES 4L BTL PO ONE (16:00)
--- NOTE | 2016-10-27 17:21 | PN ---
Date/Time of Note Date/Time of Note DATE: 10/27/16 TIME: 17:18 Assessment/Plan VTE Prophylaxis VTE Prophylaxis Intervention: LMWH Lines/Catheters Urinary Cath still in place: No Assessment/Plan Chief Complaint/Hosp Course 1. Left-sided abdominal pain secondary to pyelonephritis -UA is positive and urine culture shows Corynebacterium -ID consult appreciated 2. Cholelithiasis -Surgery consultation appreciated, no indication for surgery symptoms are not related to cholelithiasis 3. History of colon cancer s/p hemicolectomy and chemotherapy -Patient has completed chemo in December of last year -Plan is for colonoscopy tomorrow -She said that she was told if colonoscopy is negative, her Port-A-Cath will be removed. -Follow-up with oncology as outpatient 4. Hypertensive urgency: BP is better controlled -Continue antihypertensives with adjustment as needed 5. Hx of DVT/PE -continue Lovenox PPx- Lovenox Problems: Subjective 24 Hr Interval Summary Gastrointestinal: pain Exam/Review of Systems Vital Signs Vitals Vital Signs Date Time Temp Pulse Resp B/P Pulse Ox O2 Delivery O2 Flow Rate FiO2 10/27/16 14:00 98.3 72 16 121/63 97 10/25/16 08:30 Room Air Intake and Output 10/26/16 10/26/16 10/27/16 15:00 23:00 07:00 Intake Total 50 ml 1920 ml 1770 ml Balance 50 ml 1920 ml 1770 ml Exam Constitutional: alert, oriented Respiratory: clear to auscultation Cardiovascular: regular rate and rhythm Gastrointestinal: soft, tender, No distended Musculoskeletal: nl extremities to inspection Results Result Diagram: 10/27/16 0525 10/27/16 0525 Results 24 hrs Laboratory Tests Test 10/27/16 05:25 White Blood Count 8.9 Red Blood Count 3.84 L Hemoglobin 11.2 L Hematocrit 34.8 L Mean Corpuscular Volume 90.6 Mean Corpuscular Hemoglobin 29.2 Mean Corpuscular Hemoglobin Concent 32.2 Red Cell Distribution Width 13.7 Platelet Count 255 Mean Platelet Volume 10.2 Neutrophils % 58.0 Lymphocytes % 30.7 Monocytes % 9.6 Eosinophils % 1.3 Basophils % 0.0 Nucleated Red Blood Cells % 0.0 Neutrophils # (Manual) 5.2 Lymphocytes # 2.7 Monocytes # 0.9 Eosinophils # 0.1 Basophils # 0.0 Nucleated Red Blood Cells # 0.0 Prothrombin Time 13.0 Prothrombin Time Ratio 1.0 INR International Normalized Ratio 0.98 Activated Partial Thromboplast Time 37.7 H Sodium Level 141 Potassium Level 3.8 Chloride Level 103 Carbon Dioxide Level 29 Anion Gap 13 Blood Urea Nitrogen 12 Creatinine 0.96 Glucose Level 86 Calcium Level 8.3 L Medications Medications Current Medications Dextrose/Sodium Chloride (D5-1/2ns) 1,000 ml @ 100 mls/hr Q10H IV Last administered on 10/27/16 11:05; Admin Dose 100 MLS/HR; Start 10/25/16 at 06:35 Ondansetron HCl (Zofran Inj) 4 mg Q6H PRN IV NAUSEA AND/OR VOMITING; Start at 07:00 Morphine Sulfate (morphine) 4 mg Q4H PRN IV SEVERE PAIN LEVEL 7-10 Last administered on 10/27/16 11:51; Admin Dose 4 MG; Start 10/25/16 at 07:00 Hydralazine HCl (Apresoline) 10 mg Q4H PRN IV SBP > 160; Start 10/25/16 at 07: 00 Losartan Potassium (Cozaar) 50 mg DAILY PO Last administered on 10/27/16 08:38 ; Admin Dose 50 MG; Start 10/26/16 at 09:00 Phenazopyridine HCl 200 mg 200 mg TID PO Last administered on 10/26/16 20:30; Admin Dose 200 MG; Start 10/25/16 at 13:00 Ceftriaxone Sodium (Rocephin) 50 ml @ 100 mls/hr Q24H IVPB Last administered on 10/27/16 11:01; Admin Dose 100 MLS/HR; Start 10/25/16 at 11:00 Enoxaparin Sodium (Lovenox) 80 mg Q12 SC Last administered on 10/26/16 20:34; Admin Dose 80 MG; Start 10/25/16 at 13:30 Famotidine (Pepcid) 20 mg Q12 PO Last administered on 10/26/16 20:30; Admin Dose 20 MG; Start 10/26/16 at 21:00 Ketorolac Tromethamine (Toradol) 30 mg Q6H PRN IV PAIN Last administered on 08:44; Admin Dose 30 MG; Start 10/27/16 at 02:30; Stop 10/30/16 at 02:29 UBALDO HOBSON Oct 27, 2016 17:21
[2016-10-27] MEDS ORDERED: MAGNESIUM CITRATE 300 ML BTL PO ONE (17:30)
[2016-10-27] MEDS ORDERED: POLYETHYLENE GLYCOL 3350 119 GM POWDER PO ONE (18:30)
--- NOTE | 2016-10-27 18:50 | PN ---
Date/Time of Note Date/Time of Note DATE: 10/27/16 TIME: 18:47 Assessment/Plan VTE Prophylaxis VTE Prophylaxis Intervention: SCD's Lines/Catheters Urinary Cath still in place: No Assessment/Plan Assessment/Plan Summary of Assessment and Plan Assessment: * History of colon cancer post segmental resection plus adjuvant chemotherapy/ due for surveillance colonoscopy * Cholelithiasis/no cholecystitis * Morbid obesity * Hypertension * Dyslipidemia Plan: * Colonoscopy tomorrow. Patient informed procedure including risks, benefits and alternatives. Agreeable to proceeding Subjective: Course reviewed with nursing staff Patient interviewed and examined All labs, imaging and other results reviewed The patient had previously refused colonoscopy prep taking preparation without difficulties Exam: General: well developed, well nourished, obese, alert and oriented x3 , in no acute distress Skin: No lesions, no stigmata chronic liver disease, no evidence of bleeding diathesis Lymphatic: No palpable lymphadenopathy HEENT: No lesions Cardiovascular: Heart: Regular rate and rhythm, no murmurs, gallops or rubs. Peripheral pulses present within normal limits, no cyanosis, clubbing or edemas. No pulsatile abdominal mass Respiratory: Lungs clear to auscultation and percussion, no wheezing, no rubs Gastrointestinal and Liver: Abdomen: Soft, non tender, non-distended, no hernias , no masses, no organomegaly, no ascites, no guarding, no rebound tenderness, normoactive bowel sounds. Extremities: No cyanosis, clubbing, or edema. Diagnostic Studies: Available data and images were reviewed personally. See reports. Significant results and findings are addressed here or in the assessment and plan. Exam/Review of Systems Vital Signs Vitals Vital Signs Date Time Temp Pulse Resp B/P Pulse Ox O2 Delivery O2 Flow Rate FiO2 10/27/16 14:00 98.3 72 16 121/63 97 10/25/16 08:30 Room Air Intake and Output 10/26/16 10/26/16 10/27/16 15:00 23:00 07:00 Intake Total 50 ml 1920 ml 1770 ml Balance 50 ml 1920 ml 1770 ml Results Result Diagram: 10/27/16 0525 10/27/16 0525 Results 24 hrs Laboratory Tests Test 10/27/16 05:25 White Blood Count 8.9 Red Blood Count 3.84 L Hemoglobin 11.2 L Hematocrit 34.8 L Mean Corpuscular Volume 90.6 Mean Corpuscular Hemoglobin 29.2 Mean Corpuscular Hemoglobin Concent 32.2 Red Cell Distribution Width 13.7 Platelet Count 255 Mean Platelet Volume 10.2 Neutrophils % 58.0 Lymphocytes % 30.7 Monocytes % 9.6 Eosinophils % 1.3 Basophils % 0.0 Nucleated Red Blood Cells % 0.0 Neutrophils # (Manual) 5.2 Lymphocytes # 2.7 Monocytes # 0.9 Eosinophils # 0.1 Basophils # 0.0 Nucleated Red Blood Cells # 0.0 Prothrombin Time 13.0 Prothrombin Time Ratio 1.0 INR International Normalized Ratio 0.98 Activated Partial Thromboplast Time 37.7 H Sodium Level 141 Potassium Level 3.8 Chloride Level 103 Carbon Dioxide Level 29 Anion Gap 13 Blood Urea Nitrogen 12 Creatinine 0.96 Glucose Level 86 Calcium Level 8.3 L Medications Medications Current Medications Dextrose/Sodium Chloride (D5-1/2ns) 1,000 ml @ 100 mls/hr Q10H IV Last administered on 10/27/16 11:05; Admin Dose 100 MLS/HR; Start 10/25/16 at 06:35 Ondansetron HCl (Zofran Inj) 4 mg Q6H PRN IV NAUSEA AND/OR VOMITING; Start at 07:00 Morphine Sulfate (morphine) 4 mg Q4H PRN IV SEVERE PAIN LEVEL 7-10 Last administered on 10/27/16 11:51; Admin Dose 4 MG; Start 10/25/16 at 07:00 Hydralazine HCl (Apresoline) 10 mg Q4H PRN IV SBP > 160; Start 10/25/16 at 07: 00 Losartan Potassium (Cozaar) 50 mg DAILY PO Last administered on 10/27/16 08:38 ; Admin Dose 50 MG; Start 10/26/16 at 09:00 Phenazopyridine HCl 200 mg 200 mg TID PO Last administered on 10/26/16 20:30; Admin Dose 200 MG; Start 10/25/16 at 13:00 Ceftriaxone Sodium (Rocephin) 50 ml @ 100 mls/hr Q24H IVPB Last administered on 10/27/16 11:01; Admin Dose 100 MLS/HR; Start 10/25/16 at 11:00 Enoxaparin Sodium (Lovenox) 80 mg Q12 SC Last administered on 10/26/16 20:34; Admin Dose 80 MG; Start 10/25/16 at 13:30 Famotidine (Pepcid) 20 mg Q12 PO Last administered on 10/26/16 20:30; Admin Dose 20 MG; Start 10/26/16 at 21:00 Ketorolac Tromethamine (Toradol) 30 mg Q6H PRN IV PAIN Last administered on 08:44; Admin Dose 30 MG; Start 10/27/16 at 02:30; Stop 10/30/16 at 02:29 AUDI LEON MD Oct 27, 2016 18:50
[2016-10-27 19:47] VITALS: BP 146/84; RESP 20
[2016-10-28] VITALS (11 sets, daily range): BP systolic 16–142; BP diastolic 54–74; PULSE 60–66; RESP 16–24
[2016-10-28] MEDS: DEXTROSE 5%-0.45% NACL 1,000 ML IV SCH ×3 (04:38→14:35)
[2016-10-28] MEDS: morphine 4 MG/ML VIAL IV PRN (05:05)
[2016-10-28] MEDS ORDERED: POLYETHYLENE GLYCOL 3350 119 GM POWDER PO ONE (06:00)
[2016-10-28 06:21] LABS: BASOPHILS % 0.2 % (0.0-2.0); EOSINOPHILS # 0.2 10^3/ul (0.0-0.5); EOSINOPHILS % 1.8 % (0.0-7.0); HEMATOCRIT 32.9 % (37.0-47.0); HEMOGLOBIN 10.7 g/dl (12.0-16.0); LYMPHOCYTES # 2.3 10^3/ul (0.8-2.9); LYMPHOCYTES % 26.2 % (15.0-51.0); MEAN CORPUSCULAR HEMOGLOBIN 29.3 pg (29.0-33.0); MEAN CORPUSCULAR HGB CONC 32.5 g/dl (32.0-37.0); MEAN CORPUSCULAR VOLUME 90.1 fl (82.0-101.0); MONOCYTE # 0.9 10^3/ul (0.3-0.9); MONOCYTES % 10.5 % (0.0-11.0); NEUTROPHILS % 61.2 % (39.0-77.0); PLATELET COUNT 247 10^3/UL (140-415); RED BLOOD COUNT 3.65 10^6/ul (4.20-5.40); RED CELL DISTRIBUTION WIDTH 13.4 % (11.5-14.5); WHITE BLOOD COUNT 8.7 10^3/ul (4.8-10.8)
[2016-10-28 06:50] LABS: CALCIUM 8.3 mg/dl (8.4-10.2); CREATININE 1.28 mg/dl (0.44-1.00); POTASSIUM 3.8 mmol/L (3.5-5.1)
[2016-10-28] MEDS ORDERED: PROPOFOL 200 MG INJ ONE (07:00)
[2016-10-28] MEDS ORDERED: MAGNESIUM CITRATE 300 ML BTL PO ONE (08:00)
[2016-10-28] MEDS ORDERED: BISACODYL (EC) 5 MG TAB PO ONE (08:00)
[2016-10-28] MEDS: LOSARTAN 50 MG TAB PO SCH (09:00)
[2016-10-28] MEDS: PHENAZOPYRIDINE 200 MG TAB PO SCH ×3 (09:00→20:13)
[2016-10-28] MEDS: ENOXAPARIN 80 MG/0.8 ML SYG SC SCH ×2 (09:00→20:14)
[2016-10-28] MEDS: FAMOTIDINE 20 MG TAB PO SCH ×2 (09:00→20:14)
[2016-10-28] MEDS: CEFTRIAXONE 1 GM/50 ML (PMX) 50 ML IVPB SCH (11:55)
[2016-10-28] MEDS: KETOROLAC 30 MG INJ IV PRN (12:07)
[2016-10-28 12:30] LABS: ADD UMIC YES; UR ASCORBIC ACID NEGATIVE (NEGATIVE); UR BILIRUBIN (Dip) NEGATIVE (NEGATIVE); UR BLOOD (Dip) 2+ mg/dL (NEGATIVE); UR CLARITY SLIGHTLY CLOUDY (CLEAR); UR COLOR RED (YELLOW); UR GLUCOSE (Dip) NEGATIVE (NEGATIVE); UR KETONES (Dip) NEGATIVE (NEGATIVE); UR LEUKOCYTE ESTERASE (Dip) NEGATIVE Leu/ul (NEGATIVE); UR MUCUS FEW /HPF (NONE SEEN); UR NITRITE (Dip) NEGATIVE (NEGATIVE); UR RBC > 182 /HPF (0-5); UR SPECIFIC GRAVITY (Dip) 1.006 (1.003-1.030); UR TOTAL PROTEIN (Dip) 2+ mg/dl (NEGATIVE); UR UROBILINOGEN (Dip) NEGATIVE (NEGATIVE); UR WBC CLUMPS MANY /HPF (NONE SEEN)
--- NOTE | 2016-10-28 13:42 | PN ---
DATE: 10/28/2016 SUBJECTIVE DATA: No acute changes. The patient is alert, feels good, looks comfortable. She is afebrile. LABORATORY AND DIAGNOSTIC DATA: WBC 8.7, platelets 247, BUN 9, and creatinine 1.28. ANTIMICROBIALS: The patient remains on ceftriaxone, day number 4. Urine culture on admission grew Corynebacterium species. INDWELLINGS: Right chest Port-A-Cath. PHYSICAL EXAMINATION: GENERAL: This is obese, well developed, elderly woman, who is alert, in no distress. HEENT: Head atraumatic, normocephalic. Sclerae anicteric. Buccal mucosa pink. NECK: Supple. CHEST: Rise symmetrical. Breath sounds clear. HEART: S1, S2. ABDOMEN: Soft, bowel sounds present. EXTREMITIES: No cyanosis. ASSESSMENT: 1. Urinary tract infection (UTI) possible pyelonephritis with resolved left abdominal pain, urinalysis positive. Urine culture grew Corynebacterium species. Repeat urine culture pending. 2. History of colon cancer status post chemotherapy with resection. 3. Cholelithiasis. 4. Hypertension. 5. Obesity. PLAN: 1. The patient remains stable. 2. She is being followed by Gastroenterology. 3. Pending colonoscopy pending repeat urine culture. 4. Continue present care and current antibiotics. Dictated By: Brenda Solorzano NP /harry/fahad /Document#: [id number]
--- NOTE | 2016-10-28 14:10 | PN ---
Date/Time of Note Date/Time of Note DATE: 10/28/16 TIME: 14:08 Assessment/Plan VTE Prophylaxis VTE Prophylaxis Intervention: LMWH Lines/Catheters IV Catheter Type (from [facility]): PORT A CATH Urinary Cath still in place: No Assessment/Plan Chief Complaint/Hosp Course 1. Left-sided abdominal pain secondary to pyelonephritis -UA is positive and urine culture shows Corynebacterium -ID consult appreciated, continue Rocephin 2. Cholelithiasis -Surgery consultation appreciated, no indication for surgery symptoms are not related to cholelithiasis 3. History of colon cancer s/p hemicolectomy and chemotherapy -Patient has completed chemo in December of last year -Plan is for colonoscopy today -She said that she was told if colonoscopy is negative, her Port-A-Cath will be removed. -Follow-up with oncology as outpatient 4. Hypertensive urgency: BP is better controlled -Continue antihypertensives with adjustment as needed 5. Hx of DVT/PE -continue Lovenox PPx- Lovenox Problems: Subjective 24 Hr Interval Summary Constitutional: no complaints Exam/Review of Systems Vital Signs Vitals Vital Signs Date Time Temp Pulse Resp B/P Pulse Ox O2 Delivery O2 Flow Rate FiO2 10/28/16 07:42 98.9 72 16 130/66 95 10/25/16 08:30 Room Air Intake and Output 10/27/16 10/27/16 10/28/16 14:59 22:59 06:59 Intake Total 1400 ml 2170 ml 575 ml Balance 1400 ml 2170 ml 575 ml Exam Constitutional: alert, oriented Respiratory: clear to auscultation Cardiovascular: regular rate and rhythm Gastrointestinal: soft, No distended Musculoskeletal: nl extremities to inspection Results Result Diagram: 10/28/16 0545 10/28/16 0545 Results 24 hrs Laboratory Tests Test 10/28/16 05:45 10/28/16 10:50 White Blood Count 8.7 Red Blood Count 3.65 L Hemoglobin 10.7 L Hematocrit 32.9 L Mean Corpuscular Volume 90.1 Mean Corpuscular Hemoglobin 29.3 Mean Corpuscular Hemoglobin Concent 32.5 Red Cell Distribution Width 13.4 Platelet Count 247 Mean Platelet Volume 10.0 Neutrophils % 61.2 Lymphocytes % 26.2 Monocytes % 10.5 Eosinophils % 1.8 Basophils % 0.2 Nucleated Red Blood Cells % 0.0 Neutrophils # (Manual) 5.3 Lymphocytes # 2.3 Monocytes # 0.9 Eosinophils # 0.2 Basophils # 0.0 Nucleated Red Blood Cells # 0.0 Sodium Level 140 Potassium Level 3.8 Chloride Level 106 Carbon Dioxide Level 29 Anion Gap 9 Blood Urea Nitrogen 9 Creatinine 1.28 H Glucose Level 90 Calcium Level 8.3 L Urine Color RED Urine Clarity SLIGHTLY CLOUDY A Urine pH 7.0 Urine Specific [place] 1.006 Urine Ketones NEGATIVE Urine Nitrite NEGATIVE Urine Bilirubin NEGATIVE Urine Urobilinogen NEGATIVE Urine Leukocyte Esterase NEGATIVE Urine Microscopic RBC > 182 H Urine Microscopic WBC > 182 H Urine Mucus FEW A Urine Hemoglobin 2+ H Urine Glucose NEGATIVE Urine Total Protein 2+ H Medications Medications Current Medications Dextrose/Sodium Chloride (D5-1/2ns) 1,000 ml @ 100 mls/hr Q10H IV Last administered on 10/28/16 10:21; Admin Dose 100 MLS/HR; Start 10/25/16 at 06:35 Ondansetron HCl (Zofran Inj) 4 mg Q6H PRN IV NAUSEA AND/OR VOMITING Last administered on 10/27/16 18:54; Admin Dose 4 MG; Start 10/25/16 at 07:00 Morphine Sulfate (morphine) 4 mg Q4H PRN IV SEVERE PAIN LEVEL 7-10 Last administered on 10/28/16 05:05; Admin Dose 4 MG; Start 10/25/16 at 07:00 Hydralazine HCl (Apresoline) 10 mg Q4H PRN IV SBP > 160; Start 10/25/16 at 07: 00 Losartan Potassium (Cozaar) 50 mg DAILY PO Last administered on 10/27/16 08:38 ; Admin Dose 50 MG; Start 10/26/16 at 09:00 Phenazopyridine HCl 200 mg 200 mg TID PO Last administered on 10/26/16 20:30; Admin Dose 200 MG; Start 10/25/16 at 13:00 Ceftriaxone Sodium (Rocephin) 50 ml @ 100 mls/hr Q24H IVPB Last administered on 10/28/16 11:55; Admin Dose 100 MLS/HR; Start 10/25/16 at 11:00 Enoxaparin Sodium (Lovenox) 80 mg Q12 SC Last administered on 10/26/16 20:34; Admin Dose 80 MG; Start 10/25/16 at 13:30 Famotidine (Pepcid) 20 mg Q12 PO Last administered on 10/27/16 20:23; Admin Dose 20 MG; Start 10/26/16 at 21:00 Ketorolac Tromethamine (Toradol) 30 mg Q6H PRN IV PAIN Last administered on 10/28 12:07; Admin Dose 30 MG; Start 10/27/16 at 02:30; Stop 10/30/16 at 02:29 UBALDO HOBSON Oct 28, 2016 14:10
--- NOTE | 2016-10-28 17:35 | OPR ---
Date/Time of Note Date/Time of Note DATE: 10/28/16 TIME: 17:13 Operative Report Free Text/Dictation Recommendations: 1. f/u biopsy results 2. repeat surveillance colonoscopy in 3 yr time 3. ok to dc tomorrow from GI perspective if ok with primary and other consultants. Procedure Date: Oct 28, 2016 Preoperative Diagnosis anemia, h/o colon cancer Postoperative Diagnosis anemia, h/o colon cancer Operation Performed colonoscopy with biopsies colonoscopy with forcep polypectomy of flat polyp at 45 cm Surgeon: ADELE IVERSON MD Anesthesia Type: MAC Anesthesiologist: MOLLY LUNDBERG DO Estimated Blood Loss: minimal Transfusion Required: no Specimens ayan-terminal ileum biopsies random colon biopsies flat polyp at 45 cm Grafts/Implants: none Complications: no Pt Condition Post Procedure: stable Disposition: PACU Indications anemia, h/o colon cancer Operative\Procedure Findings 1. ayan-terminal ileal erythema 2. flat colon polyp at 45 cm, small about 1 cm 3. small internal hemorrhoids 4. diverticulosis in the colon and ayan-terminal ileum 5. anal skin tags Procedure Description After timeout and confirming informed consent, patient was sedated by Dr. Lundberg. After adequate sedation, I performed DEA which has liquid brown stool and normal rectal tone. There is anal skin tags. I then inserted an adult colonoscope from the anus and advanced to the anastomosis at 80 cm. I then intubated the ayan-terminal ileum for another 15 cm. I then withdraw the colonoscope while examine the colon mucosa circumferentially. Retroflexion was performed and showed small internal hemorrhoids. ADELE IVERSON MD Oct 28, 2016 17:31
[2016-10-28] MEDS ORDERED: LIDOCAINE 2% (SDV) 5 ML INJ ONE (17:38)
== END 2016-10-28 21:05 | disposition left against medical advice (07) | DRG 690 ==
LOC: E/R 01:41 → MS2 05:44
PROVIDERS: ADMIT Internal Medicine; ATTEND Internal Medicine
PROC: 0DBE8ZX Excision of Large Intestine, Via Natural or Artificial Opening Endoscopic, Diagnostic (ICD-10-PCS; 2016-10-28)
PROC: 0DBG8ZX Excision of Left Large Intestine, Via Natural or Artificial Opening Endoscopic, Diagnostic (ICD-10-PCS; principal; 2016-10-28 16:30)
DX: N10 Acute pyelonephritis (principal); I10 Essential (primary) hypertension; K80.20 Calculus of gallbladder without cholecystitis without obstruction; N39.0 Urinary tract infection, site not specified; I16.0 Hypertensive urgency; E78.5 Hyperlipidemia, unspecified; Z79.02 Long term (current) use of antithrombotics/antiplatelets; Z85.038 Personal history of other malignant neoplasm of large intestine; Z86.718 Personal history of other venous thrombosis and embolism; Z86.711 Personal history of pulmonary embolism; B96.89 Other specified bacterial agents as the cause of diseases classified elsewhere; K63.5 Polyp of colon; K64.8 Other hemorrhoids; K57.30 Diverticulosis of large intestine without perforation or abscess without bleeding; K64.4 Residual hemorrhoidal skin tags
CPT/HCPCS: 36415; 71010; 74176; 80048; 80053; 80061; 81001; 83036; 83690; 83735; 84100; 84484; 85025; 85610; 85730; 87086; 88305; 93005; 96374; 96375; J0696; J1170; J1885; J2270; J2405; J7040; J7042

== ENCOUNTER 2016-11-04 14:17 | Outpatient (CLI) | payer OTHER ==
[~2016-11-04] VITALS: Ht 170.2 cm; Wt 105.0 kg
[~2016-11-04 14:17] MED LIST changes: -CEPH-443 PO; +CIPR500T4 PO; -DOCU-159 PO; -FLUO40CA PO; -HYDR-906 PO; -NPH10OT RIGHT EAR; -ONDA4TAB14 PO; -ONDA4TAB8 PO; +PHEN-616 PO; -TRAZ50TA18 PO; +WARF10TA PO; +WARF2.5T PO
[2016-11-04 14:47] VITALS: BP 130/65; PULSE 87; RESP 16; Ht 170.2 cm; Wt 105.0 kg
--- NOTE | 2016-11-04 15:47 | PN ---
Date/Time of Note Date/Time of Note DATE: 11/04/16 TIME: 15:40 Outpatient Progress Note Chief Complaint Abdominal pain/gallstone/cancer of the colon/hypertension/right ear skin lesion HPI Abdominal pain/patient was recently admitted with abdominal pain, patient had IV antibiotic, patient afebrile, no nausea vomiting, no back pain, Gallstones/patient denies any pain in the right upper quadrant, no nausea vomiting or jaundice, Colon cancer/patient had colon cancer, patient had chemotherapy, patient also had a colonoscopy, patient had 3 biopsies, negative for cancer, Hypertension/no headache or dizziness, no local focal weakness, Right ear pain/patient has a right ear pain, initially patient stated it is for 2 weeks, patient is scratching and putting some towel inside the ear to clean, Review of Systems Const: No Fever, no chills, no Wt. loss, no Fatigue, normal appetite, no diaphoresis. Eyes: No pain, no discharge, no redness, no visual change, no foreign body. ENT: Right ear pain, no bleeding, no congestion, no sore throat, no dysphagia, no discharge or rhinitis. Lymph: No adenopathy, no tender nodes, no lymphedema. Resp: No SOB, no cough, no sputum, no wheezing, no chest pain. CV: No chest pain, no palpitaions, no LÓPEZ, no PND, no edema. GI: Normal appetite, no pain, no nausea, no vomiting, no diarrhea, no blood, no constipation. : No frequency, no urgency, no dysuria, no hematuria, no flank pain, no discharge, no bleeding. Musc: No back pain, no neck pain, no knee pain, no restricted ROM. Skin: Right arm rash, minimal and skin lesions, no erythema, no laceration, no bruising, no pruritus. Neuro: No SEGOVIA, no dizziness, no syncope, no seizure, no focal-weakness. Endo: No polyuria, no polydypsia, no dry-skin, no temp-intolerance. Psych: No hallucinations, no depression, no anxiety, no suicidal ideation. Ext: No edema, no pain, no ulcer, no weakness. Physical Exam Vital Signs Date Time Temp Pulse Resp B/P Pulse Ox O2 Delivery O2 Flow Rate FiO2 11/04/16 14:47 98.5 87 16 130/65 96 Room Air General Appearance: A 61 year-old female who appears well-developed, well- nourished, in no acute distress. HEENT: Head normocephalic, atraumatic. Pupils equal, round, reactive to light and accommodate. Sclerae are no jaundice. Nasal turbinates pink without erythema or nasal discharge. Mucous membranes pink and moist without lesions. Oropharynx clear without any exudate or discharge. Patient has minimal raised the skin and external ear canal, on the right side, and there is a small opening secondary to scratching, and, no discharge or, pus, NECK: Supple. Trachea midline, No thyromegaly, No cervical lymphadenopathy, No mass, No bruits, No JVD, Carotid pulses 2+ bilaterally. PULMONARY: Clear to auscultaion bilaterally, No retractions, Chest expansion symmetric bilaterally, no rales, no ronchi, no dulness on percussion. CARDIAC: Normal SI and S2, Regular rate and rythm, no murmur, gallop, or rub. GASTROINTESTINAL: Abdomen is soft, non-tender, Non Rigid, No distention, Positive bowel sounds x4 quadrants, Liver normal. SKIN: Warm, dry, no rash, no bruise, no echmosis minimal rash and it is skin in the left arm,. EXTREMITIES: Bilateral lower extremities normal, no edema, no phlabitus, pulse palpable, no contracture. MUSCULOSKELETAL: Spine Normal, Non-tender, Normal range of motion, No swelling, no deformity, no clubbing, or cyanosis, the patient has no edema to bilateral lower extremities, dorsalis pedis pulses palpable bilaterally. NEUROLOGIC: The patient is awake, alert, oriented, responding to yes/no questions appropriately, moving all extremities, cranial nerve intact, normal strenght, normal power, normal coordination, normal gait. Allergies Coded Allergies: Penicillins (Unverified Allergy, Unknown, 10/25/16) Sulfa (Sulfonamide Antibiotics) (Unverified Allergy, Unknown, 10/25/16) tetracycline (Unverified Allergy, Unknown, RASH, 10/25/16) PMH Cancer of colon/gallstones/hypertension/recently pyelonephritis/UTI Social Hx No smoking no drinking, Family Hx Noncontributory Assessment/Plan Impression Abdominal pain resolved/gallstones/cancer of colon/hypertension/right ear skin lesion Plan Patient education done about her disease, patient given information about her cancer, Patient's biopsy results printed and given to the patient, patient does not have any metastases at present, the biopsy result was negative, and discussed with the patient, Patient encouraged to continue to take a blood pressure medication and all other medication, and lose weight, Patient to follow with the primary care physician, patient wants to change her primary care physician, Patient was advised not to scratch right ear, and if the skin lesion not heal may need to see ENT, discussed with the patient, to rule out skin cancer, Medications Home Meds Reported Medications Warfarin Sodium* (Coumadin*) 10 Mg Tablet, 10 MG PO DAILY, TAB 10/25/16 Warfarin Sodium* (Coumadin*) 2.5 Mg Tablet, 2.5 MG PO DAILY, TAB 10/25/16 Phenazopyridine Hcl* (Phenazopyridine Hcl*) 200 Mg Tablet, 200 MG PO TID, TAB 10/25/16 Ciprofloxacin Hcl* (Ciprofloxacin Hcl*) 500 Mg Tablet, 500 MG PO BID, #14 TAB 10/25/16 Ergocalciferol* (Drisdol* (Vitamin D2)) 50,000 Unit Capsule, 59945 UNIT PO Q7D, CAP pt take on monday11/05/15 Losartan Potassium* (Losartan Potassium*) 50 Mg Tablet, 50 MG PO DAILY, TAB 11/05/15 NICOLASA RODAS MD Nov 04, 2016 15:47
== END 2016-11-04 16:37 | disposition home or self-care (01) ==
LOC: DCC 14:17
PROVIDERS: ATTEND Internal Medicine
DX: R10.9 Unspecified abdominal pain (principal); K80.80 Other cholelithiasis without obstruction; I10 Essential (primary) hypertension; L98.8 Other specified disorders of the skin and subcutaneous tissue; Z85.038 Personal history of other malignant neoplasm of large intestine; Z88.0 Allergy status to penicillin; Z88.2 Allergy status to sulfonamides

== ENCOUNTER 2017-02-17 09:36 | Emergency (ER) | payer OTHER ==
[~2017-02-17] VITALS: Wt 104.1 kg
[2017-02-17] MEDS ORDERED: morphine 4 MG/ML VIAL IV STA (10:01)
[2017-02-17] MEDS ORDERED: ONDANSETRON 4 MG INJ IV STA (10:01)
[2017-02-17 10:44] LABS: BASOPHILS % 0.1 % (0.0-2.0); EOSINOPHILS % 0.2 % (0.0-7.0); HEMATOCRIT 39.6 % (37.0-47.0); HEMOGLOBIN 12.9 g/dl (12.0-16.0); LYMPHOCYTES # 2.1 10^3/ul (0.8-2.9); MEAN CORPUSCULAR HEMOGLOBIN 29.9 pg (29.0-33.0); MEAN CORPUSCULAR HGB CONC 32.6 g/dl (32.0-37.0); MEAN CORPUSCULAR VOLUME 91.9 fl (82.0-101.0); MEAN PLATELET VOLUME 9.7 fl (7.4-10.4); MONOCYTE # 0.4 10^3/ul (0.3-0.9); MONOCYTES % 5.5 % (0.0-11.0); NEUTROPHIL # 5.5 10^3/ul (1.6-7.5); PLATELET COUNT 302 10^3/UL (140-415); RED BLOOD COUNT 4.31 10^6/ul (4.20-5.40); RED CELL DISTRIBUTION WIDTH 13.7 % (11.5-14.5)
[2017-02-17 11:02] LABS: ALANINE AMINOTRANSFERASE 35 IU/L (13-69); ALBUMIN 3.5 g/dl (3.3-4.9); ALBUMIN/GLOBULIN RATIO 1.02; ALKALINE PHOSPHATASE 78 IU/L (42-121); ANION GAP 12 (8-16); ASPARTATE AMINO TRANSFERASE 20 IU/L (15-46); BILIRUBIN,INDIRECT 0.2 mg/dl (0-1.1); BILIRUBIN,TOTAL 0.2 mg/dl (0.2-1.3); BLOOD UREA NITROGEN 10 mg/dl (7-20); CALCIUM 9.1 mg/dl (8.4-10.2); CARBON DIOXIDE 29 mmol/L (21-31); CHLORIDE 105 mmol/L (97-110); CREATININE 0.87 mg/dl (0.44-1.00); GLUCOSE 102 mg/dl (70-220); POTASSIUM 4.1 mmol/L (3.5-5.1); SODIUM 142 mmol/L (135-144); TOTAL PROTEIN 6.9 g/dl (6.1-8.1)
--- NOTE | 2017-02-17 11:10 | RADRPT ---
PROCEDURE: CT ABDOMEN AND PELVIS WITHOUT CONTRAST. CLINICAL INDICATION: Abdominal pain TECHNIQUE: CT scan of the abdomen and pelvis without contrast was performed on a multidetector hig h-resolution CT scanner. The patient was scanned without intravenous contrast. Coronal and sagittal reformatted images were obtained from the axial source images. Images were reviewed on a high-resol [employer] PACS workstation. The total exam CTDI equals 22.4 mGy and the total exam DLP equals 1445.2 mGy -cm. One or more of the following dose reduction techniques were used: Automated exposure control. Adjustment of the mA and/or kV according to patient size. Use of iterative reconstruction technique. DICOM images are available COMPARISON: CT 10/25/2016 FINDINGS: CT abdomen: The lung bases are clear. The heart size is enlarged. There is no significant pericardial effusion. Hepatic morphology is within normal limits. No gross contour deforming masses. Multiple gallstones a re noted within a contracted gallbladder. No evidence of intrahepatic or extrahepatic biliary dilata tion. No gross CT evidence of inflammatory changes at this time, however there appears to be calcifi cations overlying the neck of the gallbladder. The spleen and pancreas are within normal limits. Both adrenal glands are within normal limits. Both kidneys are in normal anatomic position. No evidence of obstruction or hydronephrosis. No gross renal/ureteric calculi. The visualized GI tract demonstrate normal caliber loops of small large bowel. No obstruction. Stool filled loops of large bowel suggestive of constipation. Right hepatic flexure anastomotic sutures a re noted. Status post right hemicolectomy. Mild atherosclerotic calcification of the aorta is identified. There is no significant lymphadenopat hy. CT pelvis: Bladder is within limits. Stool noted within the rectosigmoid colon. There is colonic diverticulosis . No significant free fluid. No significant pelvic lymphadenopathy. The visualized osseous structures demonstrate multilevel degenerative disease of the spine. IMPRESSION: 1. Cholelithiasis, without gross CT evidence of inflammatory changes at this time. However, there ar e calcifications overlying the neck of the gallbladder. Correlate clinically and consider follow-up ultrasound or MRI abdomen / MRCP. 2. No evidence of bowel obstruction. Right hepatic flexure postsurgical changes. Status post right h emicolectomy. 3. Sigmoid diverticulosis without evidence of diverticulitis. Stool filled loops of large bowel and rectum suggestive of constipation and mild fecal impaction. 4. No gross free air or free fluid. No gross focal fluid collections. RPTAT: AAPP Ganga Peñaloza, Physician Date Time Electronically viewed and signed by Ganga Peñaloza Physician on 02/17/2017 11:10 JL/
[2017-02-17 11:15] LABS: TROPONIN-I < 0.012 ng/ml (0.00-0.12)
--- NOTE | 2017-02-17 11:25 | RADRPT ---
PROCEDURE: Right upper quadrant ultrasound CLINICAL INDICATION: Abdominal pain TECHNIQUE: Multiple real-time images were acquired of the patient's abdomen and right retroperiton eum utilizing a high resolution transducer. COMPARISON: None FINDINGS: The liver is normal in echogenicity and measures 12.4 cm. No focal hepatic masses are seen. The ga llbladder is physiologically distended. There is cholelithiasis with impacted stones in the neck of the gallbladder. There is associated gallbladder wall thickening. No pericholecystic fluid is seen. The intra and extrahepatic bile ducts are normal in caliber. The common bile duct measures 4.14 mm . Midline images demonstrate the pancreas head to be normal in echogenicity without obvious inflammato ry change. The body and tail are not seen Survey views of the right kidney demonstrate no evidence of hydronephrosis or renal calculi. The ri ght kidney measures 9.6 cm. IMPRESSION: 1. Cholelithiasis with calcified stone impacted in the neck of the gallbladder. 2. There is associated gallbladder wall thickening. The right clinical setting this is suggestive o f acute cholecystitis. 3. No biliary duct dilatation RPTAT: HH .Moises Altamirano MD, MD Date Time Electronically viewed and signed by .Moises Altamirano MD, on 02/17/2017 11:25 .W/
[2017-02-17] MEDS ORDERED: HYDR-902 PO (11:37)
[2017-02-17] MEDS ORDERED: ONDA4TAB14 PO (11:37)
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
[2017-02-17 12:50] VITALS: BP 128/69; PULSE 74; RESP 20; TEMP 97.8
== END 2017-02-17 12:50 | disposition home or self-care (01) ==
LOC: E/R 09:36
DX: R10.11 Right upper quadrant pain (principal); I10 Essential (primary) hypertension; Z79.01 Long term (current) use of anticoagulants; Z85.038 Personal history of other malignant neoplasm of large intestine
CPT/HCPCS: 36415; 74176; 76705; 80053; 83690; 84484; 85025; 96374; 96375; J2270; J2405; Z7502

== ENCOUNTER 2017-03-26 06:21 | Emergency (ER) | END 2017-03-26 08:50 | disposition home or self-care (01) ==

== ENCOUNTER 2017-04-18 11:15 | Day surgery (SDC) | END 2017-04-18 16:05 | disposition home or self-care (01) ==